=== PATIENT | male | born 1945 | race Caucasian/White ===

== ENCOUNTER 2018-12-12 14:05 | Emergency (ER) | payer OTHER ==
[~2018-12-12] VITALS: Ht 175.3 cm; Wt 83.8 kg
[2018-12-12 17:02] VITALS: BP 139/86
== END 2018-12-12 17:05 | disposition home or self-care (01) ==
LOC: ED 16:06
DX: R61 Generalized hyperhidrosis (principal); R55 Syncope and collapse; E78.00 Pure hypercholesterolemia, unspecified
CPT/HCPCS: 36415; 71045; 80048; 82040; 83880; 84484; 85025; 93005; 99284